=== PATIENT | male | born 1960 | race Caucasian/White ===

== ENCOUNTER 2023-10-08 10:12 | Emergency (ER) | payer SELFPAY ==
[~2023-10-08] VITALS: Ht 175.3 cm; Wt 70.0 kg
[2023-10-08 10:13] VITALS: BP 110/62; PULSE 71; RESP 16; TEMP 97.8; O2SAT 92
[2023-10-08 11:09] LABS: BASOPHILS % 0.4 % (0.0-2.0); EOSINOPHILS % 2.7 % (0.0-5.0); HEMATOCRIT. 41.9 % (42.0-52.0); HEMOGLOBIN. 14.3 g/dL (14.0-18.0); LYMPHOCYTES % 18.8 % (20.0-50.0); MEAN CORPUSCULAR HEMOGLOBIN 31.7 pg (28.0-32.0); MEAN CORPUSCULAR HGB CONC 34.2 g/dL (31.0-37.0); MEAN CORPUSCULAR VOLUME 92.7 fL (80.0-94.0); MEAN PLATELET VOLUME 8.4 fl (7.4-10.4); MONOCYTES % 7.7 % (2.0-8.0); NEUTROPHILS % 70.4 % (40.0-76.0); PLATELET 171 x1000/uL (130-400); RED BLOOD CELL COUNT 4.52 mill/uL (4.7-6.1); RED CELL DISTRIBUTION WIDTH 12.9 % (11.6-14.6); WHITE BLOOD COUNT 4.5 x1000/uL (4.5-11.0)
[2023-10-08 11:33] LABS: ALANINE AMINOTRANSFERASE 21 IU/L (10-49); ALBUMIN 3.9 g/dL (3.2-4.8); ASPARTATE AMINOTRANSFERASE 18 IU/L (<34); BILIRUBIN TOTAL 0.2 mg/dL (0.1-1.0); CALCIUM 9.2 mg/dL (8.7-10.4); CARBON DIOXIDE 30 mEq/L (21-32); CHLORIDE 105 mEq/L (98-107); CREATININE 1.1 mg/dL (0.6-1.3); GLUCOSE 128 mg/dL (70-105); POTASSIUM 4.4 mEq/L (3.5-5.1); PROTEIN TOTAL 6.9 g/dL (6.0-8.3); SODIUM 140 mEq/L (136-145); TROPONIN I HIGH SENSITIVITY 21 ng/L (3.0-53); UREA NITROGEN BLOOD 18 mg/dL (9-23)
[2023-10-08] MEDS ORDERED: ASPIRIN 325MG EC TABLET PO ONE (12:15)
== END 2023-10-08 15:24 | disposition left against medical advice (07) ==
LOC: ER 10:12
DX: R07.9 Chest pain, unspecified (principal)
CPT/HCPCS: 36415; 71045; 80053; 83880; 84484; 85025; 93005; 99285

== ENCOUNTER 2023-11-04 17:33 | Emergency (ER) | payer OTHER ==
[~2023-11-04] VITALS: Ht 175.3 cm; Wt 75.0 kg
[2023-11-04 18:03] VITALS: O2SAT 97
[2023-11-04] MEDS ORDERED: KETOROLAC 60MG/2ML VIAL IM ONE (18:15)
[2023-11-04] MEDS ORDERED: METH-653 MT (18:54)
[2023-11-04] MEDS ORDERED: NAPR500T7 MT (18:54)
[2023-11-04 20:26] VITALS: BP 124/67; PULSE 63; RESP 16; TEMP 97.9
== END 2023-11-04 20:31 | disposition home or self-care (01) ==
LOC: ER 17:33
DX: M25.551 Pain in right hip (principal); G89.29 Other chronic pain
CPT/HCPCS: 99283; J1885; 99281